=== PATIENT | male | born 1945 | race African-American/Black ===

== ENCOUNTER 2020-01-23 08:10 | Outpatient (CLI) | payer MEDICARE, OTHER ==
--- NOTE | 2020-01-23 11:12 | PET ---
Nuclear medicine FDG PET/CT: (Positron emission tomography and computed tomography) DATE: 01/23/2020 HISTORY: 74-year-old male with lung cancer, adenocarcinoma, metastatic to the brain. Initial staging. COMPARISON: no prior PET TECHNIQUE: IV injection of F-18 fluorodeoxyglucose (FDG) dose: 10.4 mCi. PET scan and attenuation correction CT performed from skull base to proximal thighs. FINDINGS: SUV (standard uptake values) numbers given are maximum SUVs. QCLR used. Left level 3 or 4 lymph node with SUV 3.5. Left level 4 lymph node SUV 6.4. Right level 4 lymph node SUV 7.2. Large number of enlarged mediastinal lymph nodes. Some examples: Lymph node at right tracheoesophageal groove: SUV 4.0. Left upper mediastinal node SUV 4.7. Right paratracheal SUV 3.2. Aortopulmonic window: SUV 6.1. Subcarinal SUV 7.9. Left posterior inferior mediastinal: SUV 6.2. Left hilar lymphadenopathy: SUV 6.5. The approximately 1.7 cm spiculated pulmonary nodule in the apical segment of the right upper lobe de monstrated on the CT of 12/30/2019 has not changed in size since that CT. It has SUV of 8.0. Diffusely heterogeneous patchy mild nodular uptake throughout the liver with ill-defined margins. Typ ical uptake in the right lobe is 3.2 SUV. These may or may not represent diffuse hepatic metastases. However, in the left lobe of liver, ill-defined region of greater uptake with SUV of 4.2, is much mor e likely to represent hepatic metastasis. There is markedly increased uptake involving long segments of right hemicolon and transverse colon, a nd areas in the rectum and sigmoid colon, nonspecific. At the left pelvic sidewall, abutting the left obturator internus muscle, at the level of the left up per acetabulum, there is a small focus of increased uptake, SUV 6.2. No definite soft tissue density nodule is identified on the order attenuation correction CT in that location. IMPRESSION: 1) the 1.7 cm spiculated apical segment right upper lobe pulmonary nodule is very hypermetabolic, con sistent with malignancy. 2) extensive malignant metastatic mediastinal lymphadenopathy. 3) malignant left hilar lymphadenopathy. 4) ill-defined lesion in left lobe of liver, likely to represent hepatic metastasis. 5) extensive regions of increased uptake throughout the rest of the liver are favored to represent ad ditional liver metastases. Consider confirmation with dedicated multiphase CT abdomen with and without contrast or MRI abdomen with and without contrast (liver mass protocol). 6) bilateral metastatic cervical lymphadenopathy. 7) focus of significantly increased uptake at left pelvic sidewall without identification of a mass o n the attenuation correction CT in that location. This is questionable for a metastatic obturator internus, internal iliac chain lymph node.
== END 2020-01-23 08:11 | disposition home or self-care (01) ==
LOC: PET 08:10
PROVIDERS: ATTEND Internal Medicine Hematology & Oncology
DX: C34.90 Malignant neoplasm of unspecified part of unspecified bronchus or lung (principal); C79.31 Secondary malignant neoplasm of brain; C77.1 Secondary and unspecified malignant neoplasm of intrathoracic lymph nodes; C77.0 Secondary and unspecified malignant neoplasm of lymph nodes of head, face and neck; R91.1 Solitary pulmonary nodule; K76.9 Liver disease, unspecified
CPT/HCPCS: 78815; A9552

== ENCOUNTER 2020-04-06 08:30 | Outpatient (CLI) | payer MEDICARE ==
[2020-04-06] MEDS ORDERED: Magnevist 469MG/ML 20 ML VIAL ONE (09:24)
--- NOTE | 2020-04-06 10:32 | MRI ---
MRI BRAIN WITH AND WITHOUT CONTRAST: Date: 04/06/2020 INDICATIONS: Follow-up surgery. Comparison made to MRI brain dated 01/29/2020. That exam revealed postoperative change in the right p arietal lobe. There is some mild enhancement at the operative site noted on that study. FINDINGS: Postoperative changes again seen through the right parietal lobe. There continues to be some mild enh ancement along the dural surface at this operative site. The enhancement within the operative site of the parenchyma has decreased since 01/29/2020. There was more prominent ring enhancement at the rese ction site on the prior study than seen today. 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 No other abnormal enhancement identified. Gliosis at the operative site seen on FLAIR sequence appears stable. Mild chronic ischemic white matter changes are stable. No other significant change. IMPRESSION: 1. Decrease in the parenchymal enhancement at the operative site today when compared to 01/29/2020 e xam. Gliosis at the operative site remains stable. 2. 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 POS: SELENA
== END 2020-04-06 08:31 | disposition home or self-care (01) ==
LOC: MRI 08:30
PROVIDERS: ATTEND Neurological Surgery
DX: D49.6 Neoplasm of unspecified behavior of brain (principal)
CPT/HCPCS: 70553; A9579

== ENCOUNTER 2020-05-08 09:07 | Outpatient (CLI) | payer OTHER ==
--- NOTE | 2020-05-08 14:11 | PET ---
Nucleotide PET scan with CT attenuation correction HISTORY: Malignant neoplasm of right lung with metastatic disease. Restaging. COMPARISON: 01/23/2020. FINDINGS: Increased activity associated with the small spiculated mass within the right upper lobe no w shows max SUV 8.3 (previously 8.0. The slightly enlarged right upper paratracheal lymph node now max SUV 3.5 (previously 3.2). No hypermetabolic activity is now associated with the extensive cervical and mediastinal lymph nodes that were detailed on the prior exam. No new hypermetabolic lesions are apparent. No new abnormalities of the liver or pelvis. Nondiagnostic CT attenuation correction images show mild emphysematous changes at the lung apices. A lipoma associated with the superficial portion of the right posterior paraspinal small musculature of the mid back is 4.5 cm greatest transverse width on the axial images. Non-hypermetabolic reactive appearing bilateral inguinal lymph nodes are again demonstrated. Bilateral hydroceles partially visualized without evidence of complication. IMPRESSION : Near complete response. The only residual hypermetabolic abnormalities are the right upper lobe spicu lated nodule and a slightly enlarged right paratracheal lymph node. Intensities are similar to the prior study.
== END 2020-05-08 09:08 | disposition home or self-care (01) ==
LOC: PET 09:07
PROVIDERS: ATTEND Internal Medicine Hematology & Oncology
DX: C34.11 Malignant neoplasm of upper lobe, right bronchus or lung (principal); R59.0 Localized enlarged lymph nodes
CPT/HCPCS: 78815; A9552

== ENCOUNTER 2020-07-31 08:44 | Outpatient (CLI) | payer OTHER ==
[2020-07-31] MEDS ORDERED: Iopamidol 370 76% 100 ML VIAL ONE (13:58)
== END 2020-07-31 08:45 | disposition home or self-care (01) ==
LOC: CT 08:44
PROVIDERS: ATTEND Internal Medicine Hematology & Oncology
DX: C34.11 Malignant neoplasm of upper lobe, right bronchus or lung (principal); R59.0 Localized enlarged lymph nodes; R91.1 Solitary pulmonary nodule; R91.8 Other nonspecific abnormal finding of lung field
CPT/HCPCS: 71260; 74177; Q9967

== ENCOUNTER 2020-09-16 11:11 | Outpatient (CLI) | payer OTHER ==
[~2020-09-16 11:11] MED LIST: Magnevist 469MG/ML 20 ML VIAL ONE
== END 2020-09-16 11:12 | disposition home or self-care (01) ==
LOC: MRI 11:11
PROVIDERS: ATTEND Internal Medicine Hematology & Oncology
DX: C34.11 Malignant neoplasm of upper lobe, right bronchus or lung (principal); C71.9 Malignant neoplasm of brain, unspecified
CPT/HCPCS: 70553; A9579

== ENCOUNTER 2020-10-22 07:56 | Outpatient (CLI) | payer OTHER ==
[2020-10-22] MEDS ORDERED: Iopamidol 370 76% 100 ML VIAL ONE (12:03)
== END 2020-10-22 07:57 | disposition home or self-care (01) ==
LOC: CT 07:56
PROVIDERS: ATTEND Internal Medicine Hematology & Oncology
DX: C34.11 Malignant neoplasm of upper lobe, right bronchus or lung (principal); J43.9 Emphysema, unspecified; N28.89 Other specified disorders of kidney and ureter; N50.89 Other specified disorders of the male genital organs; D17.1 Benign lipomatous neoplasm of skin and subcutaneous tissue of trunk; R91.8 Other nonspecific abnormal finding of lung field
CPT/HCPCS: 71260; 74177; 78306; A9503; Q9967

== ENCOUNTER 2021-01-28 07:48 | Day surgery (SDC) | payer MEDICARE ==
[2021-01-27 14:52] VITALS: BMI 27.8
[2021-01-28] MEDS ORDERED: Lidocaine 1% PF 5 ML VIAL ONE (08:18)
[2021-01-28] MEDS ORDERED: Sodium Bicarbonate 2.5 MEQ/5 ML VIAL ONE (08:18)
[2021-01-28 09:00] VITALS: BP 146/75; TEMP 98.8
== END 2021-01-28 09:30 | disposition home or self-care (01) ==
LOC: ULT 07:48
PROVIDERS: ATTEND Internal Medicine Hematology & Oncology
PROC: 07B60ZX Excision of Left Axillary Lymphatic, Open Approach, Diagnostic (ICD-10-PCS; principal; 2021-01-28)
DX: C96.9 Malignant neoplasm of lymphoid, hematopoietic and related tissue, unspecified (principal); C71.9 Malignant neoplasm of brain, unspecified; C34.11 Malignant neoplasm of upper lobe, right bronchus or lung; C79.9 Secondary malignant neoplasm of unspecified site; Z79.899 Other long term (current) drug therapy
CPT/HCPCS: 38505; 88305; 88313; 88333; 88341; 88342

== ENCOUNTER 2021-04-29 08:54 | Outpatient (CLI) | payer OTHER ==
[2021-04-29] MEDS ORDERED: Magnevist 469MG/ML 20 ML VIAL ONE (09:34)
== END 2021-04-29 08:55 | disposition home or self-care (01) ==
LOC: PET 08:54 → MRI 08:55
PROVIDERS: ATTEND Internal Medicine Hematology & Oncology
DX: C34.11 Malignant neoplasm of upper lobe, right bronchus or lung (principal)
CPT/HCPCS: 70553; 78815; A9552

== ENCOUNTER 2021-05-10 10:27 | Emergency (ER) | payer OTHER ==
[2021-05-10 11:44] LABS: Hemoglobin 8.9 g/dL (14.0-18.0); Mean Corpuscular HGB CONC 32.5 g/dL (32.0-36.0); Mean Corpuscular Hemoglobin 37.1 pg (27.0-31.0); Mean Platelet Volume 7.6 fL (7.4-10.4); Platelet Count 292 thou/uL (130-400); RBC Distribution Width 17.5 % (11.5-14.5); Red Blood Cell (RBC) Count 2.39 mill/uL (4.70-6.10); White Blood Cell (WBC) Count 25.7 thou/uL (4.8-10.8)
[2021-05-10 11:55] LABS: ALT (SGPT) 10 U/L (8-55); AST (SGOT) 21 U/L (5-34); Albumin 3.6 g/dL (3.4-4.8); Alkaline Phosphatase 90 U/L (40-110); Anion Gap 10 mmol/L (10-20); BUN (Urea Nitrogen) 21 mg/dL (8.4-25.7); Bilirubin, Total 0.8 mg/dL (0.2-1.2); Calc. Creatinine Clearance 0 mL/min (70-130); Carbon Dioxide 30 mmol/L (23-31); Chloride 101 mmol/L (98-107); Globulin 2.6 g/dL (2.4-3.5); Glucose 108 mg/dL (83-110); Potassium 4.7 mmol/L (3.5-5.1); Protein, Total 6.2 g/dL (5.8-8.1); Sodium 136 mmol/L (136-145)
[2021-05-10 12:17] LABS: Bite Cells SLIGHT = 2-5 cells (100X) (0-1/hpf); Lymphocytes 64 % (21-51); MDiff Complete? YES; Macrocytosis MODERATE=16-30 cells (100X) (0-5/hpf); Monocytes 1 % (0-10); Neutrophil 35 % (42-75); Platelet Morphology Comment Appears Adequate; Polychromasia SLIGHT = 2-3 cells (100X) (0-2/hpf)
== END 2021-05-10 13:38 | disposition home or self-care (01) ==
LOC: ERS 10:27
DX: D64.9 Anemia, unspecified (principal); F17.210 Nicotine dependence, cigarettes, uncomplicated
CPT/HCPCS: 36415; 71045; 80053; 84484; 85025; 85060; 93005

== ENCOUNTER 2021-07-16 08:08 | Day surgery (SDC) | payer MEDICARE ==
[2021-07-16] MEDS ORDERED: diphenhydrAMINE 25 MG CAP PO SCH (08:30)
[2021-07-16] MEDS ORDERED: Acetaminophen 500 MG TAB PO SCH (08:30)
[2021-07-16] MEDS ORDERED: Acetaminophen 500 MG TAB ONE (09:29)
[2021-07-16] MEDS ORDERED: diphenhydrAMINE 25 MG CAP ONE (09:29)
[2021-07-16 14:28] VITALS: BP 129/69; TEMP 98.3
== END 2021-07-16 14:29 | disposition home or self-care (01) ==
LOC: ONC/OP 08:08
PROVIDERS: ATTEND Internal Medicine Hematology & Oncology
PROC: 30233N1 Transfusion of Nonautologous Red Blood Cells into Peripheral Vein, Percutaneous Approach (ICD-10-PCS; principal; 2021-07-16)
DX: D64.9 Anemia, unspecified (principal); D69.6 Thrombocytopenia, unspecified
CPT/HCPCS: 36430; 86850; 86900; 86901; P9016

== ENCOUNTER 2021-07-27 08:47 | Outpatient (CLI) | payer OTHER | END 2021-07-27 08:48 | disposition home or self-care (01) | LOC: PET 08:47 | PROVIDERS: ATTEND Internal Medicine Hematology & Oncology | DX: C34.11 Malignant neoplasm of upper lobe, right bronchus or lung (principal); R59.0 Localized enlarged lymph nodes; D32.0 Benign neoplasm of cerebral meninges | CPT/HCPCS: 70553; 78815; A9552 ==

== ENCOUNTER 2021-08-02 08:09 | Day surgery (SDC) | payer OTHER ==
[2021-07-29 16:00] VITALS: BMI 25.7
[~2021-08-02 08:09] MED LIST changes: +Lidocaine 1% PF 5 ML VIAL ONE; -Magnevist 469MG/ML 20 ML VIAL ONE; +Sodium Bicarbonate 2.5 MEQ/5 ML VIAL ONE
[2021-08-02 08:59] VITALS: BP 151/84; TEMP 98
== END 2021-08-02 09:40 | disposition home or self-care (01) ==
LOC: ULT 08:09
PROVIDERS: ATTEND Internal Medicine Hematology & Oncology
PROC: 07923ZX Drainage of Left Neck Lymphatic, Percutaneous Approach, Diagnostic (ICD-10-PCS; principal; 2021-08-02)
DX: C77.0 Secondary and unspecified malignant neoplasm of lymph nodes of head, face and neck (principal); C34.11 Malignant neoplasm of upper lobe, right bronchus or lung; Z87.891 Personal history of nicotine dependence; Z79.899 Other long term (current) drug therapy
CPT/HCPCS: 10005; 88172; 88173; 88305; 88341; 88342

== ENCOUNTER 2021-10-05 18:05 | Inpatient (IN) | payer MEDICARE, OTHER ==
[2021-10-05 18:46] LABS: Hemoglobin 11.7 g/dL (14.0-18.0); Mean Corpuscular HGB CONC 30.4 g/dL (32.0-36.0); Mean Corpuscular Hemoglobin 31.2 pg (27.0-31.0); Mean Platelet Volume 7.9 fL (7.4-10.4); Platelet Count 237 thou/uL (130-400); RBC Distribution Width 17.9 % (11.5-14.5); Red Blood Cell (RBC) Count 3.75 mill/uL (4.70-6.10); White Blood Cell (WBC) Count 10.8 thou/uL (4.8-10.8)
[2021-10-05 19:03] LABS: Anisocytosis SLIGHT = 6-15 cells (100X) (0-5/hpf); Band 1 % (5-11); Eosinophils 1 % (0-10); Lymphocytes 60 % (21-51); MDiff Complete? YES; Macrocytosis SLIGHT = 6-15 cells (100X) (0-5/hpf); Monocytes 1 % (0-10); Neutrophil 37 % (42-75); Ovalocytes SLIGHT = 2-5 cells (100X) (0-1/hpf); Platelet Morphology Comment Appears Adequate
[2021-10-05 19:09] LABS: ALT (SGPT) 13 U/L (8-55); AST (SGOT) 30 U/L (5-34); Alkaline Phosphatase 75 U/L (40-110); Anion Gap 18 mmol/L (10-20); BUN (Urea Nitrogen) 15 mg/dL (8.4-25.7); Bilirubin, Total 0.6 mg/dL (0.2-1.2); Calc. Creatinine Clearance 0 mL/min (70-130); Calcium 9.8 mg/dL (7.8-10.44); Carbon Dioxide 28 mmol/L (23-31); Chloride 97 mmol/L (98-107); Globulin 3.5 g/dL (2.4-3.5); Glucose 136 mg/dL (83-110); Lipase 17 U/L (8-78); Potassium 3.9 mmol/L (3.5-5.1); Protein, Total 7.5 g/dL (5.8-8.1); Sodium 139 mmol/L (136-145)
[2021-10-05 19:40] LABS: Magnesium 2.2 mg/dL (1.6-2.6)
[2021-10-05] MEDS ORDERED: Vancomycin 1 GM in Premix Bag 1 BAG IVPB SCH (20:15)
[2021-10-05] MEDS ORDERED: Piperacillin/Tazobactam 4.5 GM in Sodium Chloride 0.9% 100 ML IVPB SCH (20:15)
[2021-10-05 20:41] LABS: Bacteria/HPF None Seen HPF (None Seen); Bilirubin Negative (Negative); Blood, Urine Negative (Negative); Clarity Clear (Clear); Glucose, Urine (Dipstick) Normal (Negative); Ketone, Urine Negative (Negative); Leukocyte Negative Leu/uL (Negative); Mucous/LPF Rare LPF (<2+); Nitrite Negative (Negative); Protein, Urine (Dipstick) 50 mg/dL (Neg-Trace); RBC/HPF 0-3 HPF (0-3); Squamous Epithelial 0-3 HPF (0-3); Urobilinogen Normal mg/dL (Less than 2); pH, Urine 8.5 (5.0-9.0)
[2021-10-05 20:43] LABS: Specific Gravity, Urine 1.044 (1.002-1.036)
[2021-10-05 20:47] LABS: Amphetamine Not Detected (NotDetected); Barbiturates Screen Not Detected (NotDetected); Benzodiazepine Screen Not Detected (NotDetected); Cocaine Metabolite Screen Not Detected (NotDetected); Methadone Not Detected (NotDetected); Methamphetamine Not Detected (NotDetected); Opiate Screen Not Detected (NotDetected); Oxycodone Screen Not Detected (NotDetected); Phencyclidine (PCP) Not Detected (NotDetected); THC/Cannabinoid Screen Detected (NotDetected); Tricyclic Screen Not Detected (NotDetected)
[2021-10-05] MEDS ORDERED: hydrALAZINE 20 MG/ML VIAL SLOW IVP PRN (20:54)
[2021-10-05] MEDS ORDERED: Dextrose 5% in Water 1,000 ML IV PRN (20:54)
[2021-10-05] MEDS ORDERED: Promethazine HCl 25 MG/ML VIAL IM PRN (20:54)
[2021-10-05] MEDS ORDERED: Dextrose 50% Abboject 50 ML SYRINGE SLOW IVP PRN (20:54)
[2021-10-05] MEDS ORDERED: Mag-Al 1200 mg/1200 mg/30 ML UDCUP PO PRN (20:54)
[2021-10-05] MEDS ORDERED: Morphine 4 MG/ML VIAL SLOW IVP PRN ×2 (20:54→21:10)
[2021-10-05] MEDS ORDERED: Calcium Carbonate 500 MG ChewTAB PO PRN (20:54)
[2021-10-05] MEDS ORDERED: Ondansetron PF 4 MG/2 ML Vial IVP PRN (20:54)
[2021-10-05] MEDS ORDERED: CEFAZOLIN 2 GM, Admixture Fee 1 EACH in Sodium Chloride 0.9% 100 ML IVPB SCH (21:15)
[2021-10-05] MEDS ORDERED: Morphine 4 MG/ML VIAL ONE (21:36)
[2021-10-05 23:06] VITALS: BMI 26.4
[2021-10-05] MEDS: Famotidine 20 MG TAB PO SCH (23:06)
[2021-10-05] MEDS: Famotidine/PF 20 mg/2ml Vial SLOW IVP SCH (23:09)
[2021-10-05] MEDS: D5 1/2 NS w/20 mEq KCL 1,000 ML IV SCH (23:09)
[2021-10-06 00:25] LABS: SARS-CoV-2 NAA Rapid Test Not Detected (NotDetected)
[2021-10-06] MEDS: D5 1/2 NS w/20 mEq KCL 1,000 ML IV SCH ×2 (06:29→13:22)
[2021-10-06 06:38] LABS: Eosinophils 1 % (0-10); Hemoglobin 9.7 g/dL (14.0-18.0); Hypochromia SLIGHT = 6-15 cells (100X) (0-5/hpf); Lymphocytes 95 % (21-51); MDiff Complete? YES; Macrocytosis SLIGHT = 6-15 cells (100X) (0-5/hpf); Mean Corpuscular HGB CONC 30.6 g/dL (32.0-36.0); Mean Platelet Volume 7.7 fL (7.4-10.4); Monocytes 1 % (0-10); Neutrophil 3 % (42-75); Platelet Count 185 thou/uL (130-400); Platelet Morphology Comment Appears Adequate; RBC Distribution Width 17.7 % (11.5-14.5); Red Blood Cell (RBC) Count 3.14 mill/uL (4.70-6.10); White Blood Cell (WBC) Count 4.2 thou/uL (4.8-10.8)
[2021-10-06 06:48] LABS: ALT (SGPT) 11 U/L (8-55); AST (SGOT) 25 U/L (5-34); Albumin 3.2 g/dL (3.4-4.8); Alkaline Phosphatase 56 U/L (40-110); Anion Gap 13 mmol/L (10-20); BUN (Urea Nitrogen) 15 mg/dL (8.4-25.7); Bilirubin, Total 0.6 mg/dL (0.2-1.2); Calc. Creatinine Clearance 64 mL/min (70-130); Calcium 8.4 mg/dL (7.8-10.44); Carbon Dioxide 30 mmol/L (23-31); Chloride 102 mmol/L (98-107); Glucose 121 mg/dL (83-110); Lipase 17 U/L (8-78); Potassium 3.7 mmol/L (3.5-5.1); Protein, Total 6.2 g/dL (5.8-8.1); Sodium 141 mmol/L (136-145)
[2021-10-06] MEDS: Famotidine 20 MG TAB PO SCH (07:08)
[2021-10-06] MEDS: Famotidine/PF 20 mg/2ml Vial SLOW IVP SCH (08:27)
[2021-10-06] MEDS ORDERED: Lidocaine 1% w/Epinephrine 1:100K 20 ML VIAL ONE (11:19)
[2021-10-06] MEDS ORDERED: Bupivacaine 0.25% 10 ML VIAL ONE (11:19)
[2021-10-06] MEDS ORDERED: Fentanyl 100 MCG/2 ML VIAL ONE ×2 (11:25)
[2021-10-06] MEDS ORDERED: ceFAZolin (BATCH) 2 GM/100 ML BAG ONE (11:30)
[2021-10-06] MEDS ORDERED: Famotidine/PF 20 mg/2ml Vial ONE (11:36)
[2021-10-06] MEDS ORDERED: SUGAMMADEX SODIUM 200 MG/2 ML VIAL ONE (11:36)
[2021-10-06] MEDS ORDERED: Ketorolac Tromethamine 30 MG/ML VIAL ONE (11:42)
[2021-10-06] MEDS ORDERED: ePHEDrine 50 MG/ML VIAL ONE (11:42)
[2021-10-06] MEDS ORDERED: Rocuronium Bromide 10 MG/ML (10ML VIAL) ONE (11:42)
[2021-10-06] MEDS ORDERED: Succinylcholine 200 MG/10 ml SYRINGE FS ONE (11:42)
[2021-10-06] MEDS ORDERED: PROPOFOL 200 MG/20 ML VIAL ONE (11:42)
[2021-10-06] MEDS ORDERED: Ondansetron PF 4 MG/2 ML Vial ONE (11:42)
[2021-10-06] MEDS ORDERED: Lidocaine 1% PF 5 ML VIAL ONE (11:42)
[2021-10-06] MEDS ORDERED: Metoclopramide HCl 10 MG/2 ML VIAL ONE (11:42)
[2021-10-06] MEDS ORDERED: PHENYLEPHRINE-NS 100 MCG/ML 10 ML SYRINGE ONE (11:42)
[2021-10-06] MEDS ORDERED: Promethazine HCl 25 MG/ML VIAL IM PRN ×2 (12:26→12:27)
[2021-10-06] MEDS ORDERED: Ondansetron HCl/PF 4 MG/2 ML Vial IVP PRN (12:26)
[2021-10-06] MEDS ORDERED: Promethazine HCl 25 MG/ML VIAL IVPB PRN (12:26)
[2021-10-06] MEDS ORDERED: Ondansetron PF 4 MG/2 ML Vial IVP PRN (12:27)
[2021-10-06] MEDS ORDERED: Morphine 4 MG/ML VIAL SLOW IVP PRN ×2 (12:27→12:35)
[2021-10-06] MEDS ORDERED: hydrALAZINE 20 MG/ML VIAL SLOW IVP PRN (12:27)
[2021-10-06] MEDS ORDERED: Dextrose 50% Abboject 50 ML SYRINGE SLOW IVP PRN (12:27)
[2021-10-06] MEDS ORDERED: Dextrose 5% in Water 1,000 ML IV PRN (12:27)
[2021-10-06] MEDS ORDERED: HYDROcodone/Acetaminophen 10/325 mg Tablet PO PRN ×2 (12:27)
[2021-10-06 13:11] VITALS: TEMP 97.6
[2021-10-06] MEDS ORDERED: Ketorolac Tromethamine 30 MG/ML VIAL IVP SCH (18:00)
[2021-10-06 18:29] VITALS: BP 117/66
[2021-10-06] MEDS ORDERED: Famotidine/PF 20 mg/2ml Vial SLOW IVP SCH (21:00)
[2021-10-06] MEDS ORDERED: Famotidine 20 MG TAB PO SCH (21:00)
[2021-10-07] MEDS ORDERED: Enoxaparin Sodium 40 MG/0.4 ML SYRINGE SC SCH (09:00)
== END 2021-10-06 18:52 | disposition home or self-care (01) | DRG 351 ==
LOC: ERS 18:05 → T4-B 20:06
PROVIDERS: ADMIT Surgery; ATTEND Surgery
PROC: 0YU60JZ Supplement Left Inguinal Region with Synthetic Substitute, Open Approach (ICD-10-PCS; principal; 2021-10-06)
DX: K40.30 Unilateral inguinal hernia, with obstruction, without gangrene, not specified as recurrent (principal); C78.00 Secondary malignant neoplasm of unspecified lung; F17.210 Nicotine dependence, cigarettes, uncomplicated; F32.A Depression, unspecified; F12.10 Cannabis abuse, uncomplicated; Z20.822 Contact with and (suspected) exposure to COVID-19; Z98.890 Other specified postprocedural states; Z92.21 Personal history of antineoplastic chemotherapy; Z85.841 Personal history of malignant neoplasm of brain
CPT/HCPCS: 36415; 36416; 71275; 74177; 80053; 80306; 81003; 81015; 83605; 83690; 83735; 83880; 84484; 85025; 87040; 87086; 93005; 96374; 96375; C1781; J0690; J1885; J2270; J2405; J2543; J2704; J2765; J3010; J3370; J3480; J3490; S0020; S0028; U0002

== ENCOUNTER 2021-11-09 09:30 | Outpatient (CLI) | payer OTHER | END 2021-11-09 09:31 | disposition home or self-care (01) | LOC: PET 09:30 | PROVIDERS: ATTEND Internal Medicine Hematology & Oncology | DX: C34.11 Malignant neoplasm of upper lobe, right bronchus or lung (principal) | CPT/HCPCS: 78815; A9552 ==

== ENCOUNTER 2021-12-21 13:58 | Inpatient (IN) | payer MEDICARE, OTHER ==
[2021-12-21 14:47] LABS: Hemoglobin 11.1 g/dL (14.0-18.0); Mean Corpuscular HGB CONC 30.9 g/dL (32.0-36.0); Mean Platelet Volume 8.4 fL (7.4-10.4); Platelet Count 137 thou/uL (130-400); RBC Distribution Width 20.1 % (11.5-14.5); Red Blood Cell (RBC) Count 3.47 mill/uL (4.70-6.10); White Blood Cell (WBC) Count 8.2 thou/uL (4.8-10.8)
[2021-12-21 15:00] LABS: ALT (SGPT) 24 U/L (8-55); AST (SGOT) 81 U/L (5-34); Albumin 2.9 g/dL (3.4-4.8); Alkaline Phosphatase 70 U/L (40-110); Anion Gap 16 mmol/L (10-20); BUN (Urea Nitrogen) 16 mg/dL (8.4-25.7); Bilirubin, Total 1.5 mg/dL (0.2-1.2); Calc. Creatinine Clearance 0 mL/min (70-130); Calcium 8.6 mg/dL (7.8-10.44); Carbon Dioxide 17 mmol/L (23-31); Chloride 103 mmol/L (98-107); Globulin 3.5 g/dL (2.4-3.5); Glucose 84 mg/dL (83-110); Lipase 42 U/L (8-78); Potassium 4.8 mmol/L (3.5-5.1); Protein, Total 6.4 g/dL (5.8-8.1); Sodium 131 mmol/L (136-145)
[2021-12-21 15:15] LABS: Anisocytosis SLIGHT = 6-15 cells (100X) (0-5/hpf); Band 5 % (5-11); Lymphocytes 38 % (21-51); MDiff Complete? YES; Monocytes 3 % (0-10); Neutrophil 54 % (42-75); Polychromasia SLIGHT = 2-3 cells (100X) (0-2/hpf); Schistocytes SLIGHT = 2-5 cells (100X) (0-1/hpf)
[2021-12-21 16:23] LABS: INR-International Normal Ratio 1.1; PTT 33.5 sec (22.9-36.1); Prothrombin Time 14.6 sec (12.0-14.7)
[2021-12-21 16:40] LABS: Acetaminophen Less than 10.0 mcg/mL (10.0-30.0); Alcohol Less than 10 mg/dL (Less than 10); Salicylate Less than 8.0 mg/dL (15.0-30.0)
[2021-12-21] MEDS ORDERED: Cefepime 2 GM VIAL ONE (17:08)
[2021-12-21] MEDS ORDERED: Acetaminophen 500 MG TAB ONE (17:08)
[2021-12-21] MEDS ORDERED: Vancomycin 1 GM/200 ML BAG ONE (17:20)
[2021-12-21 19:01] LABS: Lactic Acid 1.8 mmol/L (0.5-2.2)
[2021-12-21] MEDS ORDERED: Ondansetron ODT 4 MG TAB PO PRN (21:21)
[2021-12-21] MEDS ORDERED: Ondansetron PF 4 MG/2 ML Vial IVP PRN (21:21)
[2021-12-21] MEDS ORDERED: Acetaminophen 650 MG Suppository PR PRN (21:21)
[2021-12-21] MEDS ORDERED: Acetaminophen 325 MG TAB PO PRN (21:21)
[2021-12-22] MEDS: Sodium Chloride 0.9% 1,000 ML IV SCH ×4 (00:32→21:26)
[2021-12-22 00:56] VITALS: BMI 25.9
[2021-12-22 05:04] LABS: Anion Gap 14 mmol/L (10-20); BUN (Urea Nitrogen) 17 mg/dL (8.4-25.7); Calc. Creatinine Clearance 67 mL/min (70-130); Calcium 7.8 mg/dL (7.8-10.44); Carbon Dioxide 19 mmol/L (23-31); Chloride 103 mmol/L (98-107); Glucose 88 mg/dL (83-110); Potassium 4.4 mmol/L (3.5-5.1); Sodium 132 mmol/L (136-145)
[2021-12-22 05:36] LABS: Anisocytosis SLIGHT = 6-15 cells (100X) (0-5/hpf); Band 9 % (5-11); Elliptocytes SLIGHT = 2-5 cells (100X) (0-1/hpf); Hemoglobin 10.1 g/dL (14.0-18.0); Lymphocytes 29 % (21-51); MDiff Complete? YES; Mean Corpuscular HGB CONC 31.7 g/dL (32.0-36.0); Mean Corpuscular Hemoglobin 32.9 pg (27.0-31.0); Mean Platelet Volume 9.1 fL (7.4-10.4); Monocytes 4 % (0-10); Neutrophil 58 % (42-75); Platelet Count 111 thou/uL (130-400); Platelet Morphology Comment Appears Decreased; RBC Distribution Width 20.2 % (11.5-14.5); Red Blood Cell (RBC) Count 3.06 mill/uL (4.70-6.10); White Blood Cell (WBC) Count 8.8 thou/uL (4.8-10.8)
[2021-12-22] MEDS: Enoxaparin Sodium 40 MG/0.4 ML SYRINGE SC SCH (08:12)
[2021-12-22] MEDS ORDERED: PEMBROLIZUMAB 100 MG/4 ML IV SCH (14:00)
[2021-12-22] MEDS ORDERED: Metamucil PACK PO PRN ×2 (14:12→15:30)
[2021-12-22] MEDS: Docusate 100 MG CAP PO SCH (21:34)
[2021-12-23 05:30] LABS: Bacteria/HPF None Seen HPF (None Seen); Bilirubin Negative (Negative); Blood, Urine Negative (Negative); Clarity Clear (Clear); Glucose, Urine (Dipstick) Normal (Negative); Ketone, Urine Trace mg/dL (Negative); Leukocyte Negative Leu/uL (Negative); Nitrite Negative (Negative); Protein, Urine (Dipstick) 30 mg/dL (Neg-Trace); RBC/HPF 0-3 HPF (0-3); Specific Gravity, Urine 1.016 (1.002-1.036); Squamous Epithelial 0-3 HPF (0-3); Urobilinogen Normal mg/dL (Less than 2)
[2021-12-23] MEDS: Sodium Chloride 0.9% 1,000 ML IV SCH ×3 (06:02→20:20)
[2021-12-23] MEDS: Cefepime 2 GM in Sodium Chloride 0.9% 100 ML IVPB SCH ×2 (06:02→17:57)
[2021-12-23] MEDS ORDERED: Lidocaine 1% w/Epinephrine 1:100K 20 ML VIAL ONE (08:32)
[2021-12-23] MEDS: Enoxaparin Sodium 40 MG/0.4 ML SYRINGE SC SCH (09:23)
[2021-12-23] MEDS: Senokot 8.6 MG TAB PO SCH (09:23)
[2021-12-23] MEDS: Docusate 100 MG CAP PO SCH ×2 (09:23→20:21)
[2021-12-23] MEDS: HYDROcodone/Acetaminophen 7.5/325 mg Tablet PO PRN (17:55)
[2021-12-24] MEDS: HYDROcodone/Acetaminophen 7.5/325 mg Tablet PO PRN ×2 (04:58→11:02)
[2021-12-24] MEDS: Cefepime 2 GM in Sodium Chloride 0.9% 100 ML IVPB SCH ×2 (04:59→17:10)
[2021-12-24] MEDS: Sodium Chloride 0.9% 1,000 ML IV SCH (05:24)
[2021-12-24 06:59] LABS: Anion Gap 13 mmol/L (10-20); BUN (Urea Nitrogen) 13 mg/dL (8.4-25.7); Calc. Creatinine Clearance 90 mL/min (70-130); Carbon Dioxide 15 mmol/L (23-31); Chloride 109 mmol/L (98-107); Glucose 74 mg/dL (83-110); Potassium 5.2 mmol/L (3.5-5.1); Sodium 132 mmol/L (136-145)
[2021-12-24 07:19] LABS: #Basophils 0.1 thou/uL (0.0-0.2); #Lymphocytes 1.9 thou/uL (1.20-3.40); #Monocytes 0.3 thou/uL (0.11-0.59); #Neutrophils 4.4 thou/uL (1.40-6.50); %Basophils 1.1 % (0.0-1.0); %Eosinophils 0.1 % (0.0-10.0); %Lymphocytes 28.5 % (21.0-51.0); %Monocytes 4.5 % (0.0-10.0); %Neutrophils 65.7 % (42.0-75.0); Hemoglobin 8.8 g/dL (14.0-18.0); Mean Corpuscular HGB CONC 30.2 g/dL (32.0-36.0); Mean Corpuscular Hemoglobin 31.1 pg (27.0-31.0); Mean Platelet Volume 10.2 fL (7.4-10.4); Platelet Count 88 thou/uL (130-400); RBC Distribution Width 20.3 % (11.5-14.5); Red Blood Cell (RBC) Count 2.82 mill/uL (4.70-6.10); White Blood Cell (WBC) Count 6.7 thou/uL (4.8-10.8)
[2021-12-24] MEDS: Senokot 8.6 MG TAB PO SCH (09:07)
[2021-12-24] MEDS: Enoxaparin Sodium 40 MG/0.4 ML SYRINGE SC SCH (09:07)
[2021-12-24] MEDS: Docusate 100 MG CAP PO SCH ×2 (09:08→20:44)
[2021-12-25] MEDS: Cefepime 2 GM in Sodium Chloride 0.9% 100 ML IVPB SCH ×2 (04:46→17:29)
[2021-12-25 07:21] LABS: Anion Gap 12 mmol/L (10-20); BUN (Urea Nitrogen) 12 mg/dL (8.4-25.7); Calc. Creatinine Clearance 93 mL/min (70-130); Calcium 8.1 mg/dL (7.8-10.44); Carbon Dioxide 18 mmol/L (23-31); Chloride 110 mmol/L (98-107); Glucose 87 mg/dL (83-110); Sodium 136 mmol/L (136-145)
[2021-12-25 07:37] LABS: Anisocytosis MODERATE=16-30 cells (100X) (0-5/hpf); Burr Cells MODERATE= 6-15 cells (100X) (0-1/hpf); Hemoglobin 9.1 g/dL (14.0-18.0); Hypochromia SLIGHT = 6-15 cells (100X) (0-5/hpf); Lymphocytes 19 % (21-51); MDiff Complete? YES; Macrocytosis SLIGHT = 6-15 cells (100X) (0-5/hpf); Mean Corpuscular Hemoglobin 31.8 pg (27.0-31.0); Mean Platelet Volume 10.2 fL (7.4-10.4); Monocytes 4 % (0-10); Myelocyte 1 % (0-0); Neutrophil 73 % (42-75); Ovalocytes SLIGHT = 2-5 cells (100X) (0-1/hpf); Platelet Count 94 thou/uL (130-400); Platelet Morphology Comment Appears Decreased; Polychromasia SLIGHT = 2-3 cells (100X) (0-2/hpf); RBC Distribution Width 20.6 % (11.5-14.5); Reactive Lymphocytes 3 % (0-10); Red Blood Cell (RBC) Count 2.87 mill/uL (4.70-6.10); Tear Drops SLIGHT = 2-5 cells (100X) (0-1/hpf); White Blood Cell (WBC) Count 7.8 thou/uL (4.8-10.8)
[2021-12-25] MEDS: Docusate 100 MG CAP PO SCH ×2 (08:19→20:10)
[2021-12-25] MEDS: Senokot 8.6 MG TAB PO SCH (08:19)
[2021-12-25] MEDS: Enoxaparin Sodium 40 MG/0.4 ML SYRINGE SC SCH (08:19)
[2021-12-25] MEDS: HYDROcodone/Acetaminophen 7.5/325 mg Tablet PO PRN (10:30)
[2021-12-26] MEDS: Cefepime 2 GM in Sodium Chloride 0.9% 100 ML IVPB SCH ×2 (05:14→16:12)
[2021-12-26 06:31] LABS: #Basophils 0.1 thou/uL (0.0-0.2); #Lymphocytes 3.4 thou/uL (1.20-3.40); #Monocytes 0.6 thou/uL (0.11-0.59); #Neutrophils 4.9 thou/uL (1.40-6.50); %Basophils 1.2 % (0.0-1.0); %Eosinophils 0.2 % (0.0-10.0); %Lymphocytes 37.2 % (21.0-51.0); %Monocytes 6.7 % (0.0-10.0); %Neutrophils 54.8 % (42.0-75.0); Mean Corpuscular HGB CONC 30.6 g/dL (32.0-36.0); Mean Corpuscular Hemoglobin 31.8 pg (27.0-31.0); Mean Platelet Volume 10.4 fL (7.4-10.4); Platelet Count 114 thou/uL (130-400); Red Blood Cell (RBC) Count 2.84 mill/uL (4.70-6.10)
[2021-12-26 06:46] LABS: Anion Gap 12 mmol/L (10-20); BUN (Urea Nitrogen) 9 mg/dL (8.4-25.7); Calc. Creatinine Clearance 91 mL/min (70-130); Calcium 8.2 mg/dL (7.8-10.44); Carbon Dioxide 20 mmol/L (23-31); Chloride 111 mmol/L (98-107); Glucose 80 mg/dL (83-110); Potassium 4.3 mmol/L (3.5-5.1); Sodium 139 mmol/L (136-145)
[2021-12-26] MEDS: Enoxaparin Sodium 40 MG/0.4 ML SYRINGE SC SCH (08:42)
[2021-12-26] MEDS: Docusate 100 MG CAP PO SCH ×2 (08:42→21:31)
[2021-12-26] MEDS: Senokot 8.6 MG TAB PO SCH (08:42)
[2021-12-26] MEDS ORDERED: Bisacodyl 10 MG SUPP PR SCH (21:00)
[2021-12-27] MEDS: Cefepime 2 GM in Sodium Chloride 0.9% 100 ML IVPB SCH (04:54)
[2021-12-27] MEDS: Enoxaparin Sodium 40 MG/0.4 ML SYRINGE SC SCH (09:01)
[2021-12-27] MEDS: Docusate 100 MG CAP PO SCH (09:01)
[2021-12-27] MEDS: Senokot 8.6 MG TAB PO SCH (09:01)
[2021-12-27] MEDS: HYDROcodone/Acetaminophen 7.5/325 mg Tablet PO PRN (09:47)
[2021-12-27 13:08] VITALS: BP 111/71; TEMP 97.2
== END 2021-12-27 15:03 | disposition home health service (06) | DRG 314 ==
LOC: ERS 13:58 → 2NO 21:49 → T4-A 12-23 12:37
PROVIDERS: ADMIT Student in an Organized Health Care Education/Training Program; ATTEND Internal Medicine
PROC: 3E03329 Introduction of Other Anti-infective into Peripheral Vein, Percutaneous Approach (ICD-10-PCS; principal; 2021-12-21)
PROC: 0JPT0WZ Removal of Totally Implantable Vascular Access Device from Trunk Subcutaneous Tissue and Fascia, Open Approach (ICD-10-PCS; 2021-12-23)
DX: T80.212A Local infection due to central venous catheter, initial encounter (principal); A41.59 Other Gram-negative sepsis; R65.20 Severe sepsis without septic shock; G93.41 Metabolic encephalopathy; C34.90 Malignant neoplasm of unspecified part of unspecified bronchus or lung; C79.31 Secondary malignant neoplasm of brain; E87.2 Acidosis; E87.1 Hypo-osmolality and hyponatremia; L03.313 Cellulitis of chest wall; Z20.822 Contact with and (suspected) exposure to COVID-19; D69.6 Thrombocytopenia, unspecified; D64.81 Anemia due to antineoplastic chemotherapy; T45.1X5A Adverse effect of antineoplastic and immunosuppressive drugs, initial encounter; F32.A Depression, unspecified; Y83.8 Other surgical procedures as the cause of abnormal reaction of the patient, or of later complication, without mention of misadventure at the time of the procedure; Z79.899 Other long term (current) drug therapy
CPT/HCPCS: 36415; 70450; 71045; 80048; 80053; 80307; 81003; 81015; 83605; 83690; 84484; 85025; 85610; 85730; 87040; 87070; 87077; 87149; 87186; 87205; 93005; 97139; J0692; J1650; J3370; J3490; J7050; U0003; U0005

== ENCOUNTER 2023-06-14 11:08 | Inpatient (IN) | payer MEDICARE, OTHER ==
[~2023-06-14 11:08] MED LIST changes: +Iopamidol-370 76% 500 ML MDV (1 ML CHARGE) ONE; -Lidocaine 1% PF 5 ML VIAL ONE; -Sodium Bicarbonate 2.5 MEQ/5 ML VIAL ONE
[2023-06-14 11:52] LABS: Hematocrit 38.5 % (42.0-52.0); Hemoglobin 12.3 g/dL (14.0-18.0); Manual Diff?? YES; Mean Corpuscular HGB CONC 31.9 g/dL (32.0-36.0); Mean Corpuscular Hemoglobin 32.7 pg (27.0-31.0); Mean Corpuscular Volume 102.4 fl (78.0-98.0); Mean Platelet Volume 9.9 fL (7.4-10.4); Platelet Count 146 10x3/uL (130-400); RBC Distribution Width 13.7 % (11.5-14.5); Red Blood Cell (RBC) Count 3.76 mill/uL (4.70-6.10); White Blood Cell (WBC) Count 21.3 10x3/uL (4.8-10.8)
[2023-06-14 12:05] LABS: Delete Auto Diff?? YES
[2023-06-14 12:11] LABS: ALT (SGPT) 9 U/L (8-55); AST (SGOT) 22 U/L (5-34); Albumin 3.6 g/dL (3.4-4.8); Alkaline Phosphatase 89 U/L (40-110); BUN (Urea Nitrogen) 14 mg/dL (8.4-25.7); Bilirubin, Total 0.9 mg/dL (0.2-1.2); Calc. Creatinine Clearance 0 mL/min (70-130); Calcium 9.2 mg/dL (7.8-10.44); Estimated GFR 75; Glucose 88 mg/dL (83-110); Protein, Total 6.6 g/dL (5.8-8.1)
[2023-06-14 12:17] LABS: Troponin I 0.033 ng/mL (< 0.028)
[2023-06-14] MEDS ORDERED: Ipratropium/Albuterol 3 ML NEB ONE ×2 (12:18→18:17)
[2023-06-14] MEDS ORDERED: Sodium Chloride 0.9% 100 ML ONE (12:19)
[2023-06-14] MEDS ORDERED: Cefepime 2 GM VIAL ONE (12:19)
[2023-06-14 12:24] LABS: Anion Gap 19 mmol/L (10-20); Carbon Dioxide 32 mmol/L (23-31); Chloride 93 mmol/L (98-107); Potassium 3.2 mmol/L (3.5-5.1); Sodium 141 mmol/L (136-145)
[2023-06-14] MEDS ORDERED: Vancomycin (BATCH) 1.5 GM in Premix 1 BAG IVPB SCH (12:30)
[2023-06-14 13:27] LABS: CellaVision Operator ID LAB.GE; Lymphocytes 36 % (21-51); Monocytes 7 % (0-10); Neutrophil 57 % (42-75); Platelet Adequacy Comment Platelets Normal; Polychromasia SLIGHT = 2-3 cells HPF (0-2); Smudge Cells 206.8 %; Total Cell Count 88
[2023-06-14] MEDS ORDERED: Morphine 4 MG/ML VIAL ONE (16:58)
[2023-06-14] MEDS ORDERED: Aspirin Chewable 81 MG TAB ONE (17:09)
[2023-06-14 18:10] LABS: Lactic Acid 2.1 mmol/L (0.5-2.2)
[2023-06-14] MEDS ORDERED: Ipratropium/Albuterol 3 ML NEB NEB PRN (19:05)
[2023-06-14] MEDS ORDERED: Potassium Chloride 20 MEQ TAB PO SCH (19:30)
[2023-06-14] MEDS: Acetaminophen 325 MG TAB PO PRN (21:01)
[2023-06-14] MEDS: Senokot S 8.6-50 MG TAB PO SCH (21:01)
[2023-06-15] MEDS: Cefepime 2 GM in Sodium Chloride 0.9% 100 ML IVPB SCH ×2 (04:20→15:43)
[2023-06-15 05:16] LABS: Hematocrit 35.9 % (42.0-52.0); Hemoglobin 11.3 g/dL (14.0-18.0); Manual Diff?? YES; Mean Corpuscular HGB CONC 31.5 g/dL (32.0-36.0); Mean Corpuscular Hemoglobin 32.7 pg (27.0-31.0); Mean Corpuscular Volume 103.8 fl (78.0-98.0); Mean Platelet Volume 9.9 fL (7.4-10.4); Platelet Count 142 10x3/uL (130-400); RBC Distribution Width 13.9 % (11.5-14.5); Red Blood Cell (RBC) Count 3.46 mill/uL (4.70-6.10); White Blood Cell (WBC) Count 17.4 10x3/uL (4.8-10.8)
[2023-06-15 05:27] LABS: Delete Auto Diff?? YES
[2023-06-15 05:40] LABS: Anion Gap 14 mmol/L (10-20); BUN (Urea Nitrogen) 11 mg/dL (8.4-25.7); Calc. Creatinine Clearance 64 mL/min (70-130); Calcium 8.8 mg/dL (7.8-10.44); Carbon Dioxide 32 mmol/L (23-31); Chloride 98 mmol/L (98-107); Estimated GFR 77; Glucose 80 mg/dL (83-110); Magnesium 1.8 mg/dL (1.6-2.6); Potassium 3.6 mmol/L (3.5-5.1); Sodium 140 mmol/L (136-145)
[2023-06-15 05:47] LABS: Band 5 % (5-11); CellaVision Operator ID LAB.CLH1; Eosinophils 1 % (0-10); Hypochromia SLIGHT = 6-15 cells HPF (0-5); Lymphocytes 19 % (21-51); Macrocytosis SLIGHT = 6-15 cells HPF (0-5); Monocytes 5 % (0-10); Neutrophil 68 % (42-75); Platelet Adequacy Comment Platelets Normal; Polychromasia SLIGHT = 2-3 cells HPF (0-2); Reactive Lymphocytes 1 % (0-10); Total Cell Count 99
[2023-06-15] MEDS: Morphine 2 MG/ML VIAL SLOW IVP PRN ×3 (06:14→21:42)
[2023-06-15] MEDS: Polyethylene Glycol 3350 17 GM Packet PO SCH (08:29)
[2023-06-15] MEDS: Senokot S 8.6-50 MG TAB PO SCH ×2 (08:29→20:13)
[2023-06-15] MEDS ORDERED: Iopamidol-370 76% 500 ML MDV (1 ML CHARGE) ONE (11:03)
[2023-06-15 13:23] VITALS: BMI 23.6
[2023-06-15] MEDS ORDERED: Lidocaine 1% (PF) 30 ML VIAL ONE (15:04)
[2023-06-15 16:29] LABS: Pleural Fluid, Amylase Less than 30 U/L (Not Available); Pleural Fluid, Glucose 112 mg/dL; Pleural Fluid, LDH 410 U/L (Not Available); Pleural Fluid, Protein 3.9 g/dL
[2023-06-15] MEDS: Acetaminophen 325 MG TAB PO PRN (21:41)
[2023-06-16] MEDS: Cefepime 2 GM in Sodium Chloride 0.9% 100 ML IVPB SCH ×2 (04:21→15:41)
[2023-06-16 05:10] LABS: Hematocrit 39.8 % (42.0-52.0); Hemoglobin 12.8 g/dL (14.0-18.0); Manual Diff?? YES; Mean Corpuscular HGB CONC 32.2 g/dL (32.0-36.0); Mean Corpuscular Hemoglobin 33.1 pg (27.0-31.0); Mean Corpuscular Volume 102.8 fl (78.0-98.0); Mean Platelet Volume 10.2 fL (7.4-10.4); Platelet Count 155 10x3/uL (130-400); RBC Distribution Width 13.6 % (11.5-14.5); Red Blood Cell (RBC) Count 3.87 mill/uL (4.70-6.10); White Blood Cell (WBC) Count 22.4 10x3/uL (4.8-10.8)
[2023-06-16 05:36] LABS: Delete Auto Diff?? YES
[2023-06-16 05:40] LABS: ALT (SGPT) 7 U/L (8-55); AST (SGOT) 21 U/L (5-34); Albumin 3.4 g/dL (3.4-4.8); Alkaline Phosphatase 79 U/L (40-110); Anion Gap 13 mmol/L (10-20); BUN (Urea Nitrogen) 11 mg/dL (8.4-25.7); Bilirubin, Total 1.2 mg/dL (0.2-1.2); Calc. Creatinine Clearance 67 mL/min (70-130); Calcium 9.4 mg/dL (7.8-10.44); Carbon Dioxide 30 mmol/L (23-31); Chloride 99 mmol/L (98-107); Estimated GFR 81; Globulin 3.4 g/dL (2.4-3.5); Glucose 94 mg/dL (83-110); Protein, Total 6.8 g/dL (5.8-8.1); Sodium 138 mmol/L (136-145)
[2023-06-16 06:44] LABS: Anisocytosis MODERATE=16-30 cells HPF (0-5); Band 3 % (5-11); Burr Cells SLIGHT = 2-5 cells HPF (0-1); CellaVision Operator ID LAB.JMM; Large Platelets 2.1 % (0-5); Lymphocytes 28 % (21-51); Macrocytosis SLIGHT = 6-15 cells HPF (0-5); Monocytes 7 % (0-10); Neutrophil 61 % (42-75); Ovalocytes SLIGHT = 2-5 cells HPF (0-1); Platelet Adequacy Comment Platelets Normal; Polychromasia SLIGHT = 2-3 cells HPF (0-2); Smudge Cells 210.3 %; Total Cell Count 97
[2023-06-16] MEDS: Senokot S 8.6-50 MG TAB PO SCH ×2 (08:05→19:55)
[2023-06-16] MEDS: Polyethylene Glycol 3350 17 GM Packet PO SCH (08:05)
[2023-06-16] MEDS: Acetaminophen 325 MG TAB PO PRN (08:06)
[2023-06-16] MEDS ORDERED: Magnevist 469MG/ML 20 ML VIAL ONE (11:22)
[2023-06-16] MEDS: Morphine IR 10 MG/5 ML UDCUP PO PRN (21:12)
[2023-06-17] MEDS: Cefepime 2 GM in Sodium Chloride 0.9% 100 ML IVPB SCH (04:54)
[2023-06-17] MEDS: Morphine IR 10 MG/5 ML UDCUP PO PRN ×2 (06:21→17:24)
[2023-06-17] MEDS: Polyethylene Glycol 3350 17 GM Packet PO SCH (08:49)
[2023-06-17] MEDS: Senokot S 8.6-50 MG TAB PO SCH ×2 (08:49→20:11)
[2023-06-17] MEDS ORDERED: Polyethylene Glycol 3350 17 GM Packet PO SCH (18:15)
[2023-06-17] MEDS ORDERED: Bisacodyl 10 MG SUPP PR SCH (19:30)
[2023-06-17] MEDS: Cefdinir 300 MG CAP PO SCH (20:11)
[2023-06-17] MEDS: Doxycycline 100 MG CAP PO SCH (20:11)
[2023-06-18] MEDS: Morphine IR 10 MG/5 ML UDCUP PO PRN ×3 (01:07→21:07)
[2023-06-18 06:52] LABS: Hematocrit 43.3 % (42.0-52.0); Hemoglobin 13.4 g/dL (14.0-18.0); Manual Diff?? YES; Mean Corpuscular HGB CONC 30.9 g/dL (32.0-36.0); Mean Corpuscular Hemoglobin 32.4 pg (27.0-31.0); Mean Corpuscular Volume 104.8 fl (78.0-98.0); Mean Platelet Volume 10.2 fL (7.4-10.4); Platelet Count 159 10x3/uL (130-400); RBC Distribution Width 14.1 % (11.5-14.5); Red Blood Cell (RBC) Count 4.13 mill/uL (4.70-6.10); White Blood Cell (WBC) Count 20.1 10x3/uL (4.8-10.8)
[2023-06-18 07:49] LABS: Delete Auto Diff?? YES
[2023-06-18] MEDS: Doxycycline 100 MG CAP PO SCH ×2 (08:20→19:53)
[2023-06-18] MEDS: Polyethylene Glycol 3350 17 GM Packet PO SCH (08:20)
[2023-06-18] MEDS: Cefdinir 300 MG CAP PO SCH ×2 (08:20→19:53)
[2023-06-18] MEDS: Senokot S 8.6-50 MG TAB PO SCH ×2 (08:20→19:53)
[2023-06-18 08:25] LABS: Anisocytosis SLIGHT = 6-15 cells HPF (0-5); Band 4 % (5-11); Burr Cells SLIGHT = 2-5 cells HPF (0-1); CellaVision Operator ID LAB.CMB; Eosinophils 1 % (0-10); Large Platelets 0.9 % (0-5); Lymphocytes 51 % (21-51); Macrocytosis SLIGHT = 6-15 cells HPF (0-5); Monocytes 4 % (0-10); Neutrophil 39 % (42-75); Platelet Adequacy Comment Platelets Normal; Polychromasia SLIGHT = 2-3 cells HPF (0-2); Total Cell Count 107
[2023-06-18] MEDS: Acetaminophen 325 MG TAB PO PRN (19:53)
[2023-06-19] MEDS: Morphine IR 10 MG/5 ML UDCUP PO PRN ×3 (03:23→20:58)
[2023-06-19] MEDS: Acetaminophen 325 MG TAB PO PRN (03:24)
[2023-06-19 08:33] LABS: Hematocrit 39.6 % (42.0-52.0); Hemoglobin 12.3 g/dL (14.0-18.0); Manual Diff?? YES; Mean Corpuscular HGB CONC 31.1 g/dL (32.0-36.0); Mean Corpuscular Hemoglobin 32.5 pg (27.0-31.0); Mean Corpuscular Volume 104.8 fl (78.0-98.0); Mean Platelet Volume 9.9 fL (7.4-10.4); Platelet Count 128 10x3/uL (130-400); RBC Distribution Width 13.9 % (11.5-14.5); Red Blood Cell (RBC) Count 3.78 mill/uL (4.70-6.10); White Blood Cell (WBC) Count 19.1 10x3/uL (4.8-10.8)
[2023-06-19 08:36] LABS: Delete Auto Diff?? YES
[2023-06-19] MEDS: Polyethylene Glycol 3350 17 GM Packet PO SCH (08:37)
[2023-06-19] MEDS: Cefdinir 300 MG CAP PO SCH ×2 (08:37→19:23)
[2023-06-19] MEDS: Doxycycline 100 MG CAP PO SCH ×2 (08:37→19:23)
[2023-06-19] MEDS: Senokot S 8.6-50 MG TAB PO SCH ×2 (08:37→19:23)
[2023-06-19 09:25] LABS: Anisocytosis SLIGHT = 6-15 cells HPF (0-5); Band 3 % (5-11); CellaVision Operator ID lab.dlt; Eosinophils 1 % (0-10); Lymphocytes 60 % (21-51); Macrocytosis SLIGHT = 6-15 cells HPF (0-5); Monocytes 4 % (0-10); Neutrophil 32 % (42-75); Platelet Adequacy Comment Platelets Normal; Poikilocytosis SLIGHT = 6-15 cells HPF (0-5); Polychromasia SLIGHT = 2-3 cells HPF (0-2); Total Cell Count 97
[2023-06-20] MEDS: Senokot S 8.6-50 MG TAB PO SCH (05:32)
[2023-06-20] MEDS: Polyethylene Glycol 3350 17 GM Packet PO SCH (05:32)
[2023-06-20 08:20] VITALS: TEMP 97.9
[2023-06-20] MEDS: Cefdinir 300 MG CAP PO SCH (09:06)
[2023-06-20] MEDS: Doxycycline 100 MG CAP PO SCH (09:06)
[2023-06-20] MEDS: Morphine IR 10 MG/5 ML UDCUP PO PRN (12:18)
[2023-06-20 16:00] VITALS: BP 134/78
== END 2023-06-20 16:46 | disposition hospice, home (50) | DRG 180 ==
LOC: ERS 11:08 → T4-B 18:41
PROVIDERS: ADMIT Family Medicine; ATTEND Hospitalist
PROC: 0W9930Z Drainage of Right Pleural Cavity with Drainage Device, Percutaneous Approach (ICD-10-PCS; principal; 2023-06-15)
DX: C34.90 Malignant neoplasm of unspecified part of unspecified bronchus or lung (principal); J96.01 Acute respiratory failure with hypoxia; C79.51 Secondary malignant neoplasm of bone; J91.0 Malignant pleural effusion; Z66 Do not resuscitate; Z51.5 Encounter for palliative care; K59.00 Constipation, unspecified; F17.210 Nicotine dependence, cigarettes, uncomplicated; F12.10 Cannabis abuse, uncomplicated; E87.6 Hypokalemia; D72.829 Elevated white blood cell count, unspecified; D53.9 Nutritional anemia, unspecified; R22.1 Localized swelling, mass and lump, neck; Z92.21 Personal history of antineoplastic chemotherapy; Z92.3 Personal history of irradiation; Z98.41 Cataract extraction status, right eye; Z98.42 Cataract extraction status, left eye; Z98.890 Other specified postprocedural states
CPT/HCPCS: 36415; 36556; 70553; 71045; 71275; 74177; 78306; 80048; 80053; 82150; 82945; 83605; 83615; 83735; 83880; 84157; 84484; 85025; 87040; 88112; 88305; 93005; 93306; 94640; 96365; 96367; 96375; A9503; A9579; J0692; J2270; J2272; J3370; J3490; J7620; Q9967